=== PATIENT | female | born 1975 | race Caucasian/White ===

== ENCOUNTER 2021-04-12 21:30 | Inpatient (IN) | payer BC ==
[~2021-04-12] VITALS: Ht 167.6 cm; Wt 136.1 kg
[2021-04-12 22:16] LABS: HEMOGLOBIN 13.5 gm/dl (12.3-15.3); RED BLOOD COUNT 4.99 M/UL (4.00-5.10); WHITE BLOOD COUNT 10.5 K/UL (4.5-11.0)
[2021-04-12 22:37] LABS: BUN/CREATININE RATIO 14 (0-10)
[2021-04-13] MEDS ORDERED: PREGABALIN150 MG PO (11:16)
[2021-04-13] MEDS ORDERED: SINGULAIR10 MG PO (11:17)
[2021-04-13] MEDS ORDERED: CELEXA40 MG PO (11:17)
[2021-04-13] MEDS ORDERED: TRAZODONE HCL50 MG PO (11:18)
[2021-04-13] MEDS ORDERED: GLYBURIDE5 MG PO (11:19)
[2021-04-13] MEDS ORDERED: VITAMIN D21250 MCG PO (11:19)
[2021-04-13] MEDS ORDERED: PIOGLITAZONE HC15 MG PO (11:20)
[2021-04-13] MEDS ORDERED: [UNRECOGNIZED DRUG - OTHER] PO (11:20)
[2021-04-13] MEDS ORDERED: PRAVASTATIN SOD40 MG PO (11:21)
[2021-04-13] MEDS ORDERED: ROPINIROLE HCL0.5 MG PO (11:21)
[2021-04-13] MEDS ORDERED: SIMVASTATIN10 MG PO (11:22)
[2021-04-13] MEDS ORDERED: LISINOPRIL20 MG PO (11:22)
[2021-04-13] MEDS ORDERED: HYDROCHLOROTH12.5 M1 PO (11:23)
[2021-04-13] MEDS ORDERED: BUSPIRONE HCL5 MG PO (11:24)
[2021-04-13] MEDS ORDERED: MOBIC7.5 MG PO (11:24)
[2021-04-13] MEDS ORDERED: JANUVIA100 MG PO (11:25)
[2021-04-13] MEDS ORDERED: JARDIANCE25 MG PO (11:25)
[2021-04-13] MEDS ORDERED: VRAYLAR1.5 MG PO (11:25)
[2021-04-13 14:28] LABS: BUN/CREATININE RATIO 23 (0-10)
[2021-04-14 06:49] LABS: HEMOGLOBIN 11.9 gm/dl (12.3-15.3); RED BLOOD COUNT 4.68 M/UL (4.00-5.10)
[2021-04-14 07:11] LABS: BUN/CREATININE RATIO 26 (0-10)
[2021-04-14] MEDS ORDERED: MEDROL4 MG PO (08:51)
== END 2021-04-14 11:03 | disposition home or self-care (01) | DRG 177 ==
LOC: ER1 21:30 → CDU 04-13 00:24 → M/S 04-13 17:16
PROVIDERS: Internal Medicine; Physician Assistant Medical; ADMIT Internal Medicine
PROC: 8E0ZXY6 Isolation (ICD-10-PCS; principal; 2021-04-13)
PROC: 3E0333Z Introduction of Anti-inflammatory into Peripheral Vein, Percutaneous Approach (ICD-10-PCS; 2021-04-13)
PROC: XW033E5 Introduction of Remdesivir Anti-infective into Peripheral Vein, Percutaneous Approach, New Technology Group 5 (ICD-10-PCS; 2021-04-13)
DX: U07.1 COVID-19 (principal); J12.82 Pneumonia due to coronavirus disease 2019; J96.01 Acute respiratory failure with hypoxia; E87.2 Acidosis; E87.1 Hypo-osmolality and hyponatremia; Z68.42 Body mass index [BMI] 45.0-49.9, adult; E87.6 Hypokalemia; E11.65 Type 2 diabetes mellitus with hyperglycemia; E66.01 Morbid (severe) obesity due to excess calories; I10 Essential (primary) hypertension; Z88.2 Allergy status to sulfonamides; Z79.899 Other long term (current) drug therapy; Z83.6 Family history of other diseases of the respiratory system
CPT/HCPCS: 36415; 36600; 70450; 71045; 80048; 80053; 82728; 82803; 82962; 83036; 83605; 83615; 83735; 84703; 85025; 85379; 86140; 87040; 93005; 96374; 96375; 99285; J0456; J0696; J1100; J1650; J2405; J3480; J7030; Q9967; U0002

== ENCOUNTER → 2022-01-26 | Outpatient (CLI) | payer BC ==
[~2022-01-26] MED LIST: BUSPIRONE HCL5 MG PO; CELEXA40 MG PO; GLYBURIDE5 MG PO; HYDROCHLOROTH12.5 M1 PO; JANUVIA100 MG PO; JARDIANCE25 MG PO; LISINOPRIL20 MG PO; MEDROL4 MG PO; MOBIC7.5 MG PO; PIOGLITAZONE HC15 MG PO; PRAVASTATIN SOD40 MG PO; PREGABALIN150 MG PO; ROPINIROLE HCL0.5 MG PO; SIMVASTATIN10 MG PO; SINGULAIR10 MG PO; TRAZODONE HCL50 MG PO; VITAMIN D21250 MCG PO; VRAYLAR1.5 MG PO; [UNRECOGNIZED DRUG - OTHER] PO
== END ==
LOC: KOH-I 10:43
DX: R06.02 Shortness of breath (principal)
CPT/HCPCS: 71046

== ENCOUNTER → 2022-03-28 | Outpatient (CLI) | payer BC | LOC: ECHO 12:00 → NM 13:00 → ECHO 13:00 | DX: R07.9 Chest pain, unspecified (principal); R06.02 Shortness of breath | CPT/HCPCS: ECHO; 78452; 93017; 93306; A9502; J2785 ==